=== PATIENT | male | born 1965 | race Caucasian/White ===

== ENCOUNTER → 2020-11-20 12:27 | Outpatient (CLI) | payer MEDICARE, SELFPAY ==
[2020-11-20 12:49] LABS: Absolute Lymphocyte Count 1.62 X10^3/uL (0.83-4.51); Absolute Neutrophil Count 3.2 X10^3/uL (2.0-7.7); Basophil# 0.03 X10^3/uL; Basophil% 0.6 % (0-1); Eosinophil# 0.06 X10^3/uL; Eosinophils% 1.1 % (0-5); Hematocrit 47.4 % (40-54); Hemoglobin 15.4 g/dL (13.0-16.5); Lymphocyte # 1.62 X10^3/ul (4.0); Mean Corp Hgb Conc 32.5 g/dL (32-36); Mean Corpuscular Hgb 30.7 pg (27.0-32.0); Mean Corpuscular Volume 94.6 fL (80-94); Monocyte# 0.47 X10^3/uL; Monocyte% 8.7 % (0-10); NRBC Flagged by Analyzer 0 % (0-5); Neutrophil # 3.21 X10^3/uL (2.7-7.7); Neutrophil % 59.4 % (47-70); Platelet Count 106 K/mm3 (150-450); RBC Distribution Width SD 48.5 fl (35.1-43.9); Red Blood Count 5.01 M/mm3 (4.6-6.2); White Blood Count 5.4 K/mm3 (4.4-11.0)
== END ==
DX: D69.59 Other secondary thrombocytopenia (principal)
CPT/HCPCS: 36415; 85025

== ENCOUNTER 2023-09-19 20:50 | Emergency (ER) | payer MEDICARE, SELFPAY ==
[2023-09-19 20:52] VITALS: BP 156/90; PULSE 78; RESP 18; TEMP 36.8; O2SAT 98; BMI 24.9
--- NOTE | 2023-09-19 21:00 | RAD_ITS ---
STUDY: X-RAY - RIGHT CLAVICLE REASON FOR EXAM: Male, 58 years old. PAIN TECHNIQUE: 2 view(s) of the clavicle. COMPARISON: None. FINDINGS: Severe deformity of the right clavicle secondary to old trauma. Normal acromioclavicular articulation. Normal visualized sternoclavicular articulation. There is a fracture involving the superolateral aspect of the right upper ribs. Otherwise normal Visualized pulmonary apex. RAD/Clavicle IMPRESSION: Severe deformity of the right clavicle presumably from old trauma with otherwise bony elements difficult to assess due to deformity superimposition artifact. An underlying lesion difficult to exclude. If indicated, the clavicle can be further assessed with CT or MRI in nonacute setting. Alternatively, evaluation with bone scan in nonacute setting can confirm benign processes. Electronically Signed: Germaine Landry MD at 21:41 EST ,
--- NOTE | 2023-09-19 21:34 | EX.ED.UPPERE ---
HPI History of Present Illness Chief Complaint: Upper Extremity Injury Detail of Chief Complaint: Right shoulder pain Informant: patient Narrative Narrative: Patient presents with right shoulder pain for the past 3 days. He has a history of stiff person syndrome. He reports having multiple falls and fractures in the past. 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 He reports right shoulder pain for the past 3 days, worse with any movement. He tried Epsom salt bath, Tylenol, wraps. He tried taking a friend's Percocet without improvement. There was no recent fall or injury. [facility] Medical History Fracture of left clavicle Fracture of right clavicle Injury of left clavicle Injury of right clavicle Pacemaker Stiff person syndrome Home Medications baclofen 20 mg tablet 20 mg PO QHS 12/12/22 [History Last Taken Unknown] diazepam 5 mg tablet 5 mg PO TID PRN 12/12/22 [History Last Taken Unknown] gabapentin 600 mg tablet 600 mg PO QHS 12/12/22 [History Last Taken Unknown] ibuprofen 200 mg tablet 200 mg PO Q6H PRN 12/12/22 [History Last Taken Unknown] meloxicam 15 mg tablet 15 mg PO DAILY 12/12/22 [History Last Taken Unknown] quetiapine 50 mg tablet 50 mg PO DAILY 12/12/22 [History Last Taken Unknown] sertraline 100 mg tablet 100 mg PO BID 12/12/22 [History Last Taken Unknown] oxycodone-acetaminophen 5 mg-325 mg tablet (Percocet) 1 tab PO Q8H PRN pain 3 days #10 tabs 09/19/23 [Rx Last Taken Unknown] Allergy/AdvReac Type Severity Reaction Status Date / Time carisoprodol [From Soma] Allergy Other Verified 09/19/23 20:55 diphenhydramine Allergy Hives Verified 09/19/23 20:55 [From Benadryl] Penicillins Allergy PT UNSURE Verified 09/19/23 20:55 OF REACTION topiramate [From Topamax] Allergy Other Verified 09/19/23 20:55 Surgical History History of left hip replacement Social History Smoking Status: Unknown if ever smoked ROS ROS ED Constitutional Constitutional ED: Denies chills or fever(s) Eyes Eyes: Denies discharge from eye(s) ENT ENT ED: Denies discharge from eye(s), rhinorrhea or sore throat Cardiovascular Cardiovascular: Denies chest pain Respiratory/Chest Respiratory/Chest: Denies cough or dyspnea Gastrointestinal Gastrointestinal: Denies abdominal pain, nausea or vomiting Musculoskeletal Musculoskeletal: Reports extremity pain; Denies back pain Integumentary Denies Abrasions or rash Neurologic Neurologic: Denies headache(s) Allergic/Immunologic Allergic/Immunologic ED: Denies lip swelling or urticaria EXAM Physical Exam Const Vital Signs: 09/19/23 20:52 Temperature 98.3 F Temperature Source Temporal Pulse Rate 78 Respiratory Rate 18 Blood Pressure 156/90 H Blood Pressure Mean 112 Pulse Ox 98 Oxygen Delivery Method Room Air Positive well nourished and well developed General Appearance ED: well developed Eyes EOMs intact bilaterally Chest Wall inspection of chest normal and palpation of chest normal Resp normal respiratory effort and clear to auscultation bilaterally Cardio regular rate and regular rhythm GI non-tender Palpation: soft Extremity Extremity Narrative: Mild diffuse muscular tenderness around the right shoulder. No evidence of dislocation. Strong distal pulses and good sensation on testing. Neuro oriented x3 and moves all extremities Psych mental status grossly normal Skin Lesions: no lesions Rashes: no rashes MDM MDM MDM Narrative Medical decision making narrative: Right clavicle x-rays were obtained per nursing protocol. Per my interpretation he has chronic changes from prior fractures, but no evidence of acute injury. Shoulder joint appears unremarkable. Radiology interpretation is reviewed. I did do an [facility] report. Patient has not had any narcotics prescribed to him. I will write him 10 tabs of Percocet and have him follow-up with his physician next week. He has seen [facility] in the past and is referred to them as well. Radiography Diagnostic Testing: Radiology Impression Clavicle X-Ray 09/19/23 21:00 IMPRESSION: Severe deformity of the right clavicle presumably from old trauma with otherwise bony elements difficult to assess due to deformity superimposition artifact. An underlying lesion difficult to exclude. If indicated, the clavicle can be further assessed with CT or MRI in nonacute setting. Alternatively, evaluation with bone scan in nonacute setting can confirm benign processes. Electronically Signed: Germaine Landry MD at 21:41 EST , Discharge Plan Triage Chief Complaint: Upper Extremity Injury ED Provider: Carola Blanco Dx/Rx/DC Orders Clinical Impression: Muscle strain of right shoulder region Instructions: ED Muscle Strain, Extremity Prescriptions: New oxycodone-acetaminophen [Percocet] 5-325 mg tablet 1 tab PO Q8H PRN (Reason: pain) 3 Days Qty: 10 0RF No Action gabapentin 600 mg tablet 600 mg PO QHS baclofen 20 mg tablet 20 mg PO QHS diazepam 5 mg tablet 5 mg PO TID PRN sertraline 100 mg tablet 100 mg PO BID meloxicam 15 mg tablet 15 mg PO DAILY quetiapine 50 mg tablet 50 mg PO DAILY ibuprofen 200 mg tablet 200 mg PO Q6H PRN Primary Care Provider: EDEL HENNESSY Referrals: Tejas Armstrong MD [Med Staff - Active Staff] - 1-2 Weeks Care Physician,No Primary [Non-Staff] - Disposition Disposition: Home, Self Care Discharge Date/Time: 09/19/23 22:18
--- OUTSIDE RECORDS SUMMARY | 2023-09-19 21:39 | XMS RPT_ITS | CCD ---
Author Name Unknown Address [id number] [place] [address] Organization [facility] Care Team Providers Care Instructional Technology Teacher Name Role Phone HARJEET, KHALED Unavailable Unavailable HARJEET, KHALED Unavailable Unavailable HARJEET, KHALED Unavailable Unavailable Desai, Yuhsin Unavailable Unavailable Desai, Yuhsin Unavailable Unavailable Brad, Ema Unavailable Unavailable Brad, Ema Unavailable Unavailable Desai, Yuhsin Unavailable Unavailable Family Physician Unavailable Unavailable Fiona vailable Family Physician Unavailable Unavailable Fiona vailable Brad, Ema Unavailable Unavailable Brad, Ema Unavailable Unavailable Brad, Ema Unavailable Unavailable Brad, Ema Unavailable Unavailable Brad, Ema Unavailable Unavailable Brad, Ema Unavailable Unavailable RICHARD, WASSIM Admitting Unavailable RICHARD, WASSIM Attending Unavailable BRAD, EMA Primary Care Unavailable BRAD, EMA Primary Care Unavailable TRISTAN CALIX Attending Unavailable ELICEO LANCEET Attending Unavailable MANJIT SALINASELLE Primary Care Unavailable RICHARD, WASSIM Admitting Unavailable RICHARD, WASSIM Attending Unavailable MANJIT SALINASELLE Primary Care Unavailable UNKNOWN, PROVIDER Attending Unavailable BRAD, EMA Primary Care Unavailable BRAD, EMA Primary Care Unavailable MIRIAM LANCE Attending Unavailable RICHARD, WASSIM Admitting Unavailable RICHARD, WASSIM Attending Unavailable BRAD, EMA Primary Care Unavailable RICHARD, WASSIM Admitting Unavailable RICHARD, WASSIM Attending Unavailable BRAD, EMA Primary Care Unavailable Brad, Ema Unavailable Unavailable Brad, Ema R Unavailable Unavailable Lara, Jin R Unavailable Unavailable Lara, Jin Bárbarabhzaid Unavailable Unavailab Jesu Fuentes Unavailable Unavailable Brad, Ema R Unavailable Unavailable Unavailable Ema Salinas DO Primary Care Provider EMA SALINAS Primary Care Unavailable LARA, JIN R Referring Unavailable Unavailable Unavailable Unavailable Unavailable Brad ManjitEma R Primary Care Provider Brad DOEma Unavailable Brad, Dr. Ema Mendoza Referring Bethanie Salinas, Dr. Ema Mendoza Primary Care Bethanie Salinas, Dr. Ema Mendoza Attending Bethanie Salinas, Dr. Ema Mendoza Referring Bethanie Salinas, Dr. Ema Mendoza Primary Care Bethanie Salinas, Dr. Ema Mendoza Attending Bethanie SALINAS, EMA MENDOZA Primary Care Unavailabl e Holiday, Dr. Baudilio Conte Attending Unavaila EMA Carney Primary Care Unavailabl e Holiday, Dr. Baudilio Conte Attending Unavaila EMA Carney Primary Care Unavailabl e Holiday, Dr. Baudilio Conte Attending Unavaila EMA Carney Primary Care Unavailable EMA SALINAS Attending Unavailable EMA SALINAS Primary Care Unavailable EMA SALINAS Attending Unavailable EMA SALINAS Primary Care Unavailable EMA SALINAS Attending Unavailable EMA SALINAS Primary Care Unavailable MARGARETH REDDY Referring Unavailable EMA SALINAS Primary Care Unavailable MARGARETH REDDY Referring Unavailable Allergies Allergy Classification Reported Allergen(s) Allergy Type Date of Onset Reaction(s) Facility Anti-Epileptic Agents (1 source) topiramate; Translations: [Topamax TABS] Drug Allergy XY-SEME-Segk [id number] Work Phone: Aspirin / Carisoprodol (1 source) Aspirin / Carisoprodol; Translations: [Soma Compound TABS] Drug Allergy LK-XHAH-Iamt [id number] Work Phone: diphenhydrAMINE (7 sources) diphenhydrAMINE; Translations: [Benadryl TABS] Drug Allergy [address] [place] [address] Penicillins (antibiotic) (7 sources) Penicillins; Translations: [Penicillins] Drug Allergy 5 [facility] (1 source) diphenhydrAMINE; Translations: [DIPHENHYDRAMINE HCL] Drug Allergy 2 [facility] Repository (20 sources) Penicillins; Translations: [PENICILLINS] Propensity to adverse reactions to drug (disorder) 2 Unknown [facility] Repository (20 sources) diphenhydrAMINE; Translations: [Benadryl TABS] Drug Allergy 3 Unknown HT-OGSE-Rdgi [id number] Work Phone: (20 sources) Aspirin / Carisoprodol; Translations: [Soma Compound TABS] Drug Allergy IF-OXHB-Pnvl [id number] Work Phone: (20 sources) topiramate; Translations: [Topamax TABS] Drug Allergy 3 Unknown VD-UITB-Fopp [id number] Work Phone: (3 sources) diphenhydrAMINE; Translations: [DIPHENHYDRAMINE ] [facility] (5 sources) Aspirin / Carisoprodol; Translations: [CARISOPRODOL- PIRIN] Drug Allergy 3 Unknown [facility] (2 sources) topiramate; Translations: [TOPIRAMATE] Drug Allergy 3 [facility] Repository Medications Current Medications Medication Drug Class(es) Dates Sig (Normalized) Sig (Original) celecoxib 200 mg oral capsule (4 sources) Nonsteroidal Anti-inflammatory Drug Start: 06-12-2023 End: 06-11-2024 take 1 capsule by mouth twice daily celecoxib (CeleBREX) 200 mg capsule Indications: DDD (degenerative disc disease), lumbar , Chronic pain syndrome Take 1 capsule (200 mg) by mouth 2 times a day. 60 capsule 06/12/2023 06/11/2024 Active Completed/Discontinued Medications Medication Drug Class(es) Dates Sig (Normalized) Sig (Original) acetaminophen 250 mg / aspirin 250 mg / caffeine 65 mg oral tablet (20 sources) Platelet Aggregation Inhibitor, Nonsteroidal Anti-inflammatory Drug, Central Nervous System Stimulant, Methylxanthine Start: 07-20-2020 End: 01-15-2023 take 1 tablet by mouth three times daily as needed for headache aspirin-acetamino phen-caffeine (Excedrin Extra Strength) 250-250-65 mg tablet Take 1 tablet by mouth 3 times a day as needed for headaches. 0 07/20/2020 01/15/2023 Discontinued (Therapy completed) Problems Active Problems Problem Classification Problem Date Documented Da te Episodic/Chronic Coagulation and hemorrhagic disorders (20 sources) Platelet count below reference range; Translations: [Thrombocytopenia , unspecified] Onset: 06-08-2015 02-16-2021 Chronic Past or Other Problems Problem Classification Problem Date Documented Da te Episodic/Chronic Abdominal pain (4 sources) Generalized abdominal pain; Translations: [Unspecified abdominal pain] Onset: 01-28-2018 Episodic Allergic reactions (1 source) Allergy status to penicillin Onset: 02-20-2018 Episodic Anal and rectal conditions (20 sources) Rectal pain; Translations: [Anal or rectal pain] Onset: 09-08-2020 Resolved: 01-15-2023 02-16-2021 Episodic Cardiac dysrhythmias (2 sources) Sick sinus syndrome; Translations: [Sick sinus syndrome] Onset: 06-01-2015 Resolved: 09-12-2020 09-12-2020 Chronic Cardiac dysrhythmias (2 sources) Bradycardia; Translations: [Bradycardia, unspecified] Onset: 04-24-2011 Resolved: 09-12-2020 09-12-2020 Episodic Crushing injury or internal injury (20 sources) Laceration of spleen; Translations: [Other specified aftercare] Onset: 09-08-2020 Resolved: 06-02-2019 09-08-2020 Episodic Deficiency and other anemia (20 sources) Anemia; Translations: [Anemia, unspecified] Onset: 09-08-2020 Resolved: 01-15-2023 02-16-2021 Episodic Deficiency and other anemia (20 sources) Nutritional anemia; Translations: [Other vitamin B12 deficiency anemia] Onset: 01-15-2023 01-15-2023 Episodic Gastrointestinal hemorrhage (20 sources) Hematochezia; Translations: [Blood in stool] Onset: 09-08-2020 Resolved: 01-15-2023 02-16-2021 Episodic Heart valve disorders (2 sources) Systolic murmur; Translations: [Cardiac murmur, unspecified] Onset: 06-07-2015 02-16-2021 Episodic Other aftercare (2 sources) Other terminal computer operator (current) drug therapy; Translations: [Other snf (current) drug therapy] Onset: 01-15-2023 Episodic Other connective tissue disease (20 sources) Pelvic floor dysfunction; Translations: [Pelvic muscle wasting] Onset: 02-16-2021 Resolved: 01-15-2023 02-16-2021 Episodic Other gastrointestinal disorders (1 source) Constipation, unspecified Onset: 10-18-2017 Episodic Other gastrointestinal disorders (2 sources) Hemoperitoneum; Translations: [Hemoperitoneum] Onset: 01-28-2018 Episodic Other gastrointestinal disorders (20 sources) Constipation; Translations: [Constipation, unspecified] Onset: 09-08-2020 02-16-2021 Episodic Other gastrointestinal disorders (20 sources) Urgent desire for stool; Translations: [Fecal urgency] Onset: 09-08-2020 Resolved: 01-15-2023 02-16-2021 Episodic Other gastrointestinal disorders (20 sources) H/O: colitis; Translations: [Personal history of other diseases of digestive system] Onset: 09-08-2020 Resolved: 06-02-2019 01-31-2021 Episodic Other nervous system disorders (1 source) Paresthesia of skin Onset: 10-18-2017 Episodic Other nervous system disorders (2 sources) Abnormal gait; Translations: [Unspecified abnormalities of gait and mobility] Onset: 10-30-2011 05-18-2015 Episodic Residual codes; unclassified (1 source) Tobacco use Onset: 02-20-2018 Episodic Residual codes; unclassified (20 sources) Insomnia; Translations: [Insomnia, unspecified] Onset: 09-08-2020 02-16-2021 Episodic Residual codes; unclassified (20 sources) H/O: Disorder; Translations: [Personal history of other specified diseases] Resolved: 03-07-2021 Episodic Residual codes; unclassified (2 sources) Procedure contraindicated; Translations: [Procedure and treatment not carried out because of other contraindication] Onset: 06-07-2015 02-16-2021 Episodic Skull and face fractures (8 sources) Unspecified fracture of facial bones, initial encounter for closed fracture; Translations: [Closed fracture of other facial bones] Onset: 04-24-2011 02-16-2021 Episodic Spondylosis; intervertebral disc disorders; other back problems (20 sources) Dorsalgia, unspecified; Translations: [Backache] Onset: 10-30-2011 Resolved: 01-15-2023 Episodic Unclassified (1 source) Unknown / UNK(Unknown) Onset: 01-28-2018 Unclassified (1 source) SPLEENIC RUPTURE Onset: 01-28-2018 Unclassified (6 sources) Patient encounter status; Translations: [Encounter for immunization] Unclassified (4 sources) H/O: blood transfusion; Translations: [History of blood transfusion] Unclassified (3 sources) Onset: 01-15-2023 Resolved: 05-13-2023 01-15-2023 Unclassified (1 source) Pain in other specified joint; Translations: [Pain in other specified joint] Onset: 06-12-2023 Viral infection (20 sources) Disease caused by 2019-nCoV; Translations: [Other specified viral infection] Onset: 01-15-2023 Resolved: 01-15-2023 01-15-2023 Episodic NEGATED: Highlighted row has not occurred!Residual codes; unclassified (20 sources) Disease Episodic Results Test Name Value Interpretation Reference Range Facil ity Vital Signs Date Time Vital Sign Value Performing Clinician Facility 06-12-2023 16:08-0400 Body height 180.3 cm Ema Salinas DO Work Phone: [facility] 06-12-2023 16:08-0400 Body mass index (BMI) [Ratio] 25.38 kg/m2 Ema Salinas DO Work Phone: [facility] 06-12-2023 16:08-0400 Body temperature 98.2 [degF] Ema Salinas DO Work Phone: [facility] 06-12-2023 16:08-0400 Body weight 82.56 kg Ema Salinas DO Work Phone: [facility] 06-12-2023 16:08-0400 Diastolic blood pressure 76 mm[Hg] Ema Salinas DO Work Phone: [facility] 06-12-2023 16:08-0400 Heart rate 80 /min Ema Salinas DO Work Phone: [facility] 06-12-2023 16:08-0400 Respiratory rate 16 /min Ema Salinas DO Work Phone: [facility] 06-12-2023 16:08-0400 SaO2% (BldA) [Mass fraction] 97 % Ema Salinas DO Work Phone: [facility] 06-12-2023 16:08-0400 Systolic blood pressure 130 mm[Hg] Ema Salinas DO Work Phone: [facility] 05-13-2023 13:11-0400 Body height 180.3 cm Ema Salinas DO Work Phone: [facility] 05-13-2023 13:11-0400 Body mass index (BMI) [Ratio] 24.83 kg/m2 Ema Salinas DO Work Phone: [facility] 05-13-2023 13:11-0400 Body temperature 98.2 [degF] Ema Salinas DO Work Phone: [facility] 05-13-2023 13:11-0400 Body weight 80.74 kg Ema Salinas DO Work Phone: [facility] 05-13-2023 13:11-0400 Diastolic blood pressure 76 mm[Hg] Ema Salinas DO Work Phone: [facility] 05-13-2023 13:11-0400 Heart rate 76 /min Ema Salinas DO Work Phone: [facility] 05-13-2023 13:11-0400 Respiratory rate 16 /min Ema Salinas DO Work Phone: [facility] 05-13-2023 13:11-0400 SaO2% (BldA) [Mass fraction] 95 % Ema Salinas DO Work Phone: [facility] 05-13-2023 13:11-0400 Systolic blood pressure 128 mm[Hg] Ema Brad DO Work Phone: [facility] 01-15-2023 14:51-0400 Body height 180.3 cm Ema Salinas DO Work Phone: [facility] 01-15-2023 14:51-0400 Body mass index (BMI) [Ratio] 27.06 kg/m2 Ema Brad DO Work Phone: [facility] 01-15-2023 14:51-0400 Body temperature 97.81 [degF] Ema Salinas DO Work Phone: [facility] 01-15-2023 14:51-0400 Body weight 88 kg Ema Salinsa DO Work Phone: [facility] 01-15-2023 14:51-0400 Diastolic blood pressure 76 mm[Hg] Ema Chaudhryey DO Work Phone: [facility] 01-15-2023 14:51-0400 Heart rate 76 /min Ema Salinas DO Work Phone: [facility] 01-15-2023 14:51-0400 Respiratory rate 16 /min Ema Salinas DO Work Phone: [facility] 01-15-2023 14:51-0400 SaO2% (BldA) [Mass fraction] 98 % Emamichael Salinas DO Work Phone: [facility] 01-15-2023 14:51-0400 Systolic blood pressure 122 mm[Hg] Ema Brad DO Work Phone: [facility] 09-17-2022 14:53-0500 Body mass index (BMI) [Ratio] 26.5 kg/m2 Ema Salinas Work Phone: FZ-NABI-Ddwc 2535A Work Phone: 09-17-2022 14:53-0500 Body surface area Derived from formula 2.06 m2 Ema Salinas Work Phone: GK-JZVN-Jhnr 2535A Work Phone: 09-17-2022 14:53-0500 Body temperature 97.2 [degF] mEa Salinas Work Phone: YD-TMJX-Qvou 2535A Work Phone: 09-17-2022 14:53-0500 Body weight 86.18 kg Ema Salinas Work Phone: GT-IDQJ-Dqzj 2535A Work Phone: 09-17-2022 14:53-0500 Diastolic blood pressure 76 mm[Hg] Ema Salinas Work Phone: VB-ODTE-Dkak 2535A Work Phone: 09-17-2022 14:53-0500 Heart rate 88 /min Ema Salinas Work Phone: FH-VZQY-Jvdj 2535A Work Phone: 09-17-2022 14:53-0500 Respiratory rate 16 /min Ema Salinas Work Phone: EF-KGZO-Bfka 2535A Work Phone: 09-17-2022 14:53-0500 SaO2% (BldA) [Mass fraction] 98 % Ema Salinas Work Phone: FD-ETXK-Haah 2535A Work Phone: 09-17-2022 14:53-0500 Systolic blood pressure 132 mm[Hg] Ema Salinas Work Phone: FD-LBCS-Olpj 2535A Work Phone: 05-02-2022 15:26-0400 Body mass index (BMI) [Ratio] 25.8 kg/m2 Ema Salinas Work Phone: ZV-IUYI-Knmh 2535A Work Phone: 05-02-2022 15:26-0400 Body surface area Derived from formula 2.04 m2 Ema Leif Chaudhryey Work Phone: MM-JXGL-Cbjv 2535A Work Phone: 05-02-2022 15:26-0400 Body temperature 98 [degF] Emamichael Chaudhryey Work Phone: RT-NAQM-Etyh 2535A Work Phone: 05-02-2022 15:26-0400 Body weight 83.92 kg Ema Chaudhryey Work Phone: CX-IQSE-Ulbq 2535A Work Phone: 05-02-2022 15:26-0400 Diastolic blood pressure 78 mm[Hg] Ema Salinas Work Phone: NQ-NISZ-Kgmk 2535A Work Phone: 05-02-2022 15:26-0400 Heart rate 68 /min Ema Chaudhryey Work Phone: AG-IBGQ-Ycgc 2535A Work Phone: 05-02-2022 15:26-0400 Respiratory rate 16 /min Ema Leif Chaudhryey Work Phone: OZ-KLGO-Keya 2535A Work Phone: 05-02-2022 15:26-0400 SaO2% (BldA) [Mass fraction] 98 % Ema Chaudhryey Work Phone: CJ-KLEA-Gfib 2535A Work Phone: 05-02-2022 15:26-0400 Systolic blood pressure 126 mm[Hg] Ema Salinas Work Phone: FO-PSQW-Rzyu 2535A Work Phone: 12-26-2021 13:05-0400 Body mass index (BMI) [Ratio] 25.38 kg/m2 Ema Salinas Work Phone: ZF-YQPZ-Ooss 2535A Work Phone: 12-26-2021 13:05-0400 Body surface area Derived from formula 2.03 m2 Ema Salinas Work Phone: LN-TDZA-Qtnb 2535A Work Phone: 12-26-2021 13:05-0400 Body temperature 98 [degF] Ema Salinas Work Phone: KS-EQOY-Pukr 2535A Work Phone: 12-26-2021 13:05-0400 Body weight 82.56 kg Ema Salinas Work Phone: JA-JFQQ-Tsmb 2535A Work Phone: 12-26-2021 13:05-0400 Diastolic blood pressure 72 mm[Hg] Ema Salinas Work Phone: OB-BJAX-Kxvd 2535A Work Phone: 12-26-2021 13:05-0400 Heart rate 72 /min Ema Salinas Work Phone: BE-FFMR-Fnkw 2535A Work Phone: 12-26-2021 13:05-0400 Respiratory rate 16 /min Ema Salinas Work Phone: RJ-ZBLJ-Bnpj 2535A Work Phone: 12-26-2021 13:05-0400 SaO2% (BldA) [Mass fraction] 98 % Ema Salinas Work Phone: KJ-OJBF-Pwim 2535A Work Phone: 12-26-2021 13:05-0400 Systolic blood pressure 116 mm[Hg] Ema Salinas Work Phone: WU-VFOI-Vgqq 2535A Work Phone: 11-19-2021 15:26-0400 Body mass index (BMI) [Ratio] 25.8 kg/m2 Ema Salinas Work Phone: BH-TXHL-Dvuf 2535A Work Phone: 11-19-2021 15:26-0400 Body surface area Derived from formula 2.04 m2 Ema Salinas Work Phone: PA-OLTP-Xgxx 2535A Work Phone: 11-19-2021 15:26-0400 Body temperature 97.9 [degF] Ema Salinas Work Phone: JA-WOMF-Clot 2535A Work Phone: 11-19-2021 15:26-0400 Body weight 83.92 kg Ema Salinas Work Phone: OD-VGAP-Ioee 2535A Work Phone: 11-19-2021 15:26-0400 Diastolic blood pressure 72 mm[Hg] Ema Salinas Work Phone: RH-HABC-Mdgs 2535A Work Phone: 11-19-2021 15:26-0400 Heart rate 76 /min Ema Salinas Work Phone: DU-WUTO-Ckkz 2535A Work Phone: 11-19-2021 15:26-0400 Respiratory rate 16 /min Ema Leif Brad Work Phone: SJ-ISIX-Tucx 2535A Work Phone: 11-19-2021 15:26-0400 SaO2% (BldA) [Mass fraction] 98 % Ema Chaudhryey Work Phone: JL-KWER-Xzvt 2535A Work Phone: 11-19-2021 15:26-0400 Systolic blood pressure 122 mm[Hg] Ema Chaudhryey Work Phone: UJ-HUVP-Fcoz 2535A Work Phone: 08-31-2021 12:40-0500 Body mass index (BMI) [Ratio] 24.41 kg/m2 Ema Salinas Work Phone: MZ-JLWV-Ynmb 2535A Work Phone: 08-31-2021 12:40-0500 Body surface area Derived from formula 1.99 m2 Ema Salinas Work Phone: PZ-BDWF-Cfse 2535A Work Phone: 08-31-2021 12:40-0500 Body temperature 97.9 [degF] Ema Salinas Work Phone: YA-LHOL-Nyqy 2535A Work Phone: 08-31-2021 12:40-0500 Body weight 79.38 kg Ema Salinas Work Phone: SK-NWDD-Xoka 2535A Work Phone: 08-31-2021 12:40-0500 Diastolic blood pressure 72 mm[Hg] Ema Salinas Work Phone: UE-TQGY-Ygvg 2535A Work Phone: 08-31-2021 12:40-0500 Heart rate 84 /min Ema Salinas Work Phone: EU-QFCL-Fbmd 2535A Work Phone: 08-31-2021 12:40-0500 Respiratory rate 16 /min Ema Salinas Work Phone: WZ-TVYM-Rhsz 2535A Work Phone: 08-31-2021 12:40-0500 SaO2% (BldA) [Mass fraction] 98 % Ema Salinas Work Phone: TZ-WIXU-Kmkd 2535A Work Phone: 01-21-2022 12:40-0500 Systolic blood pressure 118 mm[Hg] Ema Salinas Work Phone: IB-EVXQ-Msiw 2535A Work Phone: 04-19-2021 11:29-0400 Body height 180.34 cm Ema Salinas Work Phone: VE-SKNU-Vdab 2535A Work Phone: 04-19-2021 11:29-0400 Body mass index (BMI) [Ratio] 24.13 kg/m2 Ema Salinas Work Phone: AY-MJPJ-Mozs 2535A Work Phone: 04-19-2021 11:29-0400 Body surface area Derived from formula 1.98 m2 Ema Leif Brad Work Phone: NY-CFXZ-Jftx 2535A Work Phone: 04-19-2021 11:29-0400 Body temperature 97.6 [degF] Ema Salinas Work Phone: VM-EMZO-Qdrw 2535A Work Phone: 04-19-2021 11:29-0400 Body weight 78.47 kg Ema Salinas Work Phone: YO-FRPO-Xbbb 2535A Work Phone: 04-19-2021 11:29-0400 Diastolic blood pressure 68 mm[Hg] Ema Leif Brad Work Phone: LK-JBSR-Ckut 2535A Work Phone: 04-19-2021 11:29-0400 Heart rate 72 /min Ema Salinas Work Phone: DW-HNUW-Fazd 2535A Work Phone: 04-19-2021 11:29-0400 Respiratory rate 16 /min Ema Salinas Work Phone: VR-BTBC-Pnqu 2535A Work Phone: 04-19-2021 11:29-0400 SaO2% (BldA) [Mass fraction] 98 % Ema Salinas Work Phone: UL-ULMV-Qnjm 2535A Work Phone: 04-19-2021 11:29-0400 Systolic blood pressure 102 mm[Hg] Ema Salinas Work Phone: ML-PSDG-Azid 2535A Work Phone: 03-20-2021 15:48-0400 Body mass index (BMI) [Ratio] 23.48 kg/m2 Ema Salinas Work Phone: BS-OLBE-Slgo 2535A Work Phone: 03-20-2021 15:48-0400 Body surface area Derived from formula 2.05 m2 Ema Salinas Work Phone: DI-GTAE-Aeqb 2535A Work Phone: 03-20-2021 15:48-0400 Body temperature 98.2 [degF] Ema Salinas Work Phone: JP-ZCWL-Uobi 2535A Work Phone: 03-20-2021 15:48-0400 Body weight 80.74 kg Ema Salinas Work Phone: FB-KHOO-Ofsd 2535A Work Phone: 03-20-2021 15:48-0400 Diastolic blood pressure 64 mm[Hg] Ema Salinas Work Phone: FA-BSXS-Pizw 2535A Work Phone: 03-20-2021 15:48-0400 Heart rate 90 /min Ema Salinas Work Phone: HN-TQKC-Luvs 2535A Work Phone: 03-20-2021 15:48-0400 Respiratory rate 18 /min Ema Salinas Work Phone: MJ-OIGQ-Cbsl 2535A Work Phone: 03-20-2021 15:48-0400 SaO2% (BldA) [Mass fraction] 98 % Ema Salinas Work Phone: QV-LKEW-Kvll 2535A Work Phone: 03-20-2021 15:48-0400 Systolic blood pressure 100 mm[Hg] Ema Salinas Work Phone: KS-JJCN-Jvay 2535A Work Phone: 03-07-2021 15:50-0400 Body mass index (BMI) [Ratio] 23.88 kg/m2 Ema Salinas Work Phone: WL-EIIB-Uehu 2535A Work Phone: 03-07-2021 15:50-0400 Body surface area Derived from formula 2.06 m2 Ema Salinas Work Phone: UO-HIZE-Uemw 2535A Work Phone: 03-07-2021 15:50-0400 Body temperature 98.6 [degF] Ema Salinas Work Phone: OX-OSYT-Bgao 2535A Work Phone: 03-07-2021 15:50-0400 Body weight 82.1 kg Ema Leif Brad Work Phone: LJ-BRHG-Isrg 2535A Work Phone: 03-07-2021 15:50-0400 Diastolic blood pressure 72 mm[Hg] Ema Chaudhryey Work Phone: WO-IHNQ-Jsik 2535A Work Phone: 03-07-2021 15:50-0400 Heart rate 92 /min Ema Salinas Work Phone: UF-OLBD-Uprv 2535A Work Phone: 03-07-2021 15:50-0400 Respiratory rate 16 /min Ema Salinas Work Phone: EJ-QSIA-Xtvx 2535A Work Phone: 03-07-2021 15:50-0400 SaO2% (BldA) [Mass fraction] 98 % Ema Salinas Work Phone: XR-KWFR-Yuxn 2535A Work Phone: 03-07-2021 15:50-0400 Systolic blood pressure 134 mm[Hg] Ema Salinas Work Phone: UY-FDQA-Kpbn 2535A Work Phone: 01-17-2021 11:11-0400 Body mass index (BMI) [Ratio] 24.57 kg/m2 Ema Salinas Work Phone: BN-XPMJ-Geno 2535A Work Phone: 01-17-2021 11:11-0400 Body surface area Derived from formula 2.09 m2 Ema Salinas Work Phone: LN-MMYY-Zlsf 2535A Work Phone: 01-17-2021 11:11-0400 Body temperature 97.7 [degF] Ema Salinas Work Phone: HY-JTAY-Wcjb 2535A Work Phone: 01-17-2021 11:11-0400 Body weight 84.46 kg Ema Salinas Work Phone: LC-TNTZ-Toep 2535A Work Phone: 01-17-2021 11:11-0400 Diastolic blood pressure 78 mm[Hg] Ema Salnias Work Phone: MH-CHUF-Cpmk 2535A Work Phone: 01-17-2021 11:11-0400 Heart rate 88 /min Ema Salinas Work Phone: LL-IBDE-Azsh 2535A Work Phone: 01-17-2021 11:11-0400 Respiratory rate 16 /min Ema Salinas Work Phone: JX-UZHB-Yhxn 2535A Work Phone: 01-17-2021 11:11-0400 SaO2% (BldA) [Mass fraction] 98 % Ema Salinas Work Phone: BI-ZCSA-Gdka 2535A Work Phone: 01-17-2021 11:11-0400 Systolic blood pressure 120 mm[Hg] Ema Salinas Work Phone: BS-UVBV-Ouzq 2535A Work Phone: 10-19-2020 13:43-0500 BMI (Body Mass Index) 25.86 kg/m2 [facility] Work4 Work Phone: 10-19-2020 13:43-0500 Body Temperature 98.3 [degF] [facility] Work4 Work Phone: 10-19-2020 13:43-0500 Body weight 88.91 kg [facility] Work4 Work Phone: 10-19-2020 13:43-0500 BP Diastolic 88 mm[Hg] [facility] Work4 Work Phone: 10-19-2020 13:43-0500 BP Systolic 136 mm[Hg] [facility] Work4 Work Phone: 10-19-2020 13:43-0500 BSA (Body Surface Area) 2.13 m2 [facility] Work4 Work Phone: 10-19-2020 13:43-0500 Pulse (Heart Rate) 88 /min [facility] Work4 Work Phone: 10-19-2020 13:43-0500 Pulse Oximetry 98 % [facility] Work Phone: 10-19-2020 13:43-0500 Respiratory Rate 16 /min Ema [facility] Work Phone: 05-19-2020 12:26-0400 BMI (Body Mass Index) 25.6 kg/m2 Ema Salinas MP-WSPC-Avon 2535A Work Phone: 05-19-2020 12:26-0400 Body Temperature 98.2 [degF] Ema Salinas CX-JMAK-Zosk 25 35A Work Phone: 05-19-2020 12:26-0400 Body weight 88 kg Ema Salinas MP-WSPC-Avon 253 5A Work Phone: 05-19-2020 12:26-0400 BP Diastolic 80 mm[Hg] Ema Salinas MT-VOJD-Awkm 253 5A Work Phone: 05-19-2020 12:26-0400 BP Systolic 128 mm[Hg] Ema Salinas WH-KAUY-Zmkg 253 5A Work Phone: 05-19-2020 12:26-0400 BSA (Body Surface Area) 2.12 m2 Ema Salinas MP-WSPC-[place]on 2535A Work Phone: 05-19-2020 12:26-0400 Pulse (Heart Rate) 81 /min Ema Salinas MP-WSPC-[place]on 2535A Work Phone: 05-19-2020 12:26-0400 Pulse Oximetry 97 % Ema Salinas MP-WSPC-[place]on 253 5A Work Phone: 05-19-2020 12:26-0400 Respiratory Rate 18 /min Ema Salinas MP-WSPC-Avon 25 35A Work Phone: 12-10-2019 12:56-0400 BMI (Body Mass Index) 26.12 kg/m2 Ema Salinas MP-WSPC-Avon 2535A Work Phone: 12-10-2019 12:56-0400 Body Temperature 97 [degF] Ema Salinas MJ-ETEM-Hvvr 25 35A Work Phone: 12-10-2019 12:56-0400 Body weight 89.81 kg Ema Salinas JP-CMNG-Gqdg 253 5A Work Phone: 12-10-2019 12:56-0400 BP Diastolic 80 mm[Hg] Ema Salinas KH-DPZQ-Mrir 253 5A Work Phone: 12-10-2019 12:56-0400 BP Systolic 142 mm[Hg] Ema Salinas ZB-HPOE-Qdwt 253 5A Work Phone: 12-10-2019 12:56-0400 BSA (Body Surface Area) 2.14 m2 Ema Salinas [id number] Work Phone: 12-10-2019 12:56-0400 Pulse (Heart Rate) 90 /min Ema Salinas [id number] 2535A Work Phone: 12-10-2019 12:56-0400 Pulse Oximetry 98 % Ema Salinas [id number] 253 5A Work Phone: 12-10-2019 12:56-0400 Respiratory Rate 18 /min Ema Salinas [id number] 25 35A Work Phone: Encounters Encounter Date Encounter Type Care Provider Facility Start: 07-31-2023 ambulatory EMA SALINAS [facility] Start: 07-17-2023 End: 07-18-2023 ambulatory MARGARETH REDDY Not Available Start: 06-12-2023 End: 06-12-2023 ambulatory EMA SALINAS [facility] Start: 06-12-2023 End: 06-12-2023 Office outpatient visit 25 minutes Ema Salinas DO Work Phone: [facility] Procedures Date Procedure Procedure Detail Performing Clinician Start: 05-13-2023 CBC W Auto Different ial panel - Blood EMA SALINAS Start: 05-13-2023 Ferritin [Mass/volum e] in Serum or Plasma EMA BRAD Start: 05-13-2023 FOLATE EMA MENDOZA Start: 05-13-2023 IRON AND TIBC EMA BRAD Start: 05-13-2023 FLU VACCINE (IIV4) G REATER THAN OR EQUAL TO 3YO PRESERVATIVE FREE EMA SALINAS Start: 01-15-2023 OPIATE/OPIOID/BENZO PRESCRIPTION COMPLIANCE EMA SALINAS Start: 01-15-2023 OPIATE/OPIOID/BENZO EXTENDED PRESCRIPTION COMPLIANCE EMA SALINAS Start: 01-15-2023 OPIATE/OPIOID/BENZO PRESCRIPTION COMPLIANCE Ema Salinas DO Work Phone: Start: 01-15-2023 Lipid 1996 panel - S janelle or Plasma Ema Salinas DO Work Phone: Start: 04-04-2021 C-reactive protein Lisa Lara MD Work Phone: Start: 04-04-2021 Sedimentation rate r bc automated Jin Lara MD Work Phone: Start: 03-13-2021 Ct head/brain w/o co ntrast material Jin Lara MD Work Phone: Start: 03-13-2021 Ct lumbar spine w/o contrast material Jin Lara MD Work Phone: Start: 02-05-2021 End: 02-05-2021 Colonoscopy Ema Salinas Work Phone: Start: 10-27-2020 Anorectal Manometry Jasmeet Salinas Cardiac catheterization Manjit Salinas seo executive removal Manjit Salinas History of Hip Surgery Left Ema Salinas History of Pacemaker Placement Ema Salinas Insertion of pacemak er pulse generator Ema Salinas Plan of Treatment Date Care Activity Detail Author Start: 02-05-2031 Screening for malign ant neoplasm of colon [facility] Start: 01-16-2028 Lipid panel Lipid Panel [facility] Start: 05-14-2024 Medicare Annual Well ness Visit Medicare Annual Wellness Visit (AWV) [facility] Start: 01-16-2024 Creatinine measurement Creatinine Le jessica [facility] Start: 01-16-2024 Potassium measurement Potassium Anahi l [facility] Start: 11-12-2023 End: 11-12-2023 Patient encounter procedure 11/12/2023 1:30 PM EDT Office Visit [facility] [address] [place] [address] Ema Salinas, DO [address] [place] [address] [facility] Start: 07-21-2023 End: 07-21-2023 Patient encounter procedure 07/21/2023 2:30 PM EST Office Visit [facility] [address] [place] [address] Ema Salinas, DO [address] [place] [address] [facility] Start: 06-12-2023 End: 06-12-2024 CBC panel - Blood by Automated count CBC Lab Routine Pain in other joint Expected: 06/12/2023 (Approximate), Expires: 06/12/2024 [facility] Work Phone: Immunizations Immunization Date Immunization Notes Care Provider Fa [facility] 05-13-2023 influenza, injectabl e, quadrivalent, preservative free Ema Salinas DO Work Phone: [facility] Work Phone: 04-19-2021 influenza, injectabl e, quadrivalent, preservative free; Translations: [Fluarix Quadrivalent 0.5 ML Intramuscular Suspension Prefilled Syringe] Ema Salinas Work Phone: [id number] Work Phone: Payers Date Payer Category Payer Medicare ANTHEM MEDICARE ANTHEM MEDICARE ADVANTAGE [id number] 2021-Present [address] [place] [address] [id number] 2017 Medicaid MEDICAID MEDICAI D [id number] 2017-Present [address] [place] [address] [id number] 2017 Medicaid [id number] 2014 Unknown [id number] 1964 Unknown [id number] [id number]5 1964 Unknown [id number] 2.16.840.1.833605.3.579.2.355 1964 Unknown [id number] 2.16.840.1.963341.3.579.2.355 1964 Unknown [id number] 2.16.840.1.711129.3.579.2.355 1964 Unknown [id number] 2.16.840.1.662504.3.579.2.355 1964 Unknown [id number] 2.16.840.1.276254.3.579.2.355 1964 Unknown [id number] 2.16.840.1.088588.3.579.2.355 1964 Unknown [id number] 2.16.840.1.894386.3.579.2.355 1964 Unknown [id number] 2.16.840.1.005306.3.579.2.185 1964 Unknown [id number] 2.16.840.1.848586.3.579.2.356 1964 Unknown [id number] 2.16.840.1.825816.3.579.2.356 1964 Unknown [id number] 2.16.840.1.701104.3.579.2.1068 1964 Unknown [id number] 2.16.840.1.552099.3.579.2.1068 1964 Unknown [id number] 2.16.840.1.177290.3.579.2.1068 1964 Unknown [id number] 2.16.840.1.295318.3.579.2.1245 1964 Unknown [id number] 2.16.840.1.448411.3.579.2.124 1964 Unknown [id number] 2.16.840.1.738332.3.579.2.1244 1964 Unknown [id number] 2.16.840.1.493685.3.579.2.1244 1964 Unknown [id number] 2.16.840.1.797996.3.579.2.1259 1964 Unknown [id number] 2.16.840.1.087106.3.579.2.182 Unknown Social History Date Type Detail Facility Start: 01-15-2023 End: 05-13-2023 Current every day smoker Current every day smoker [id number] 2535A Work Phone: Functional Status Date Assessment Result Facility NEGATED: Highlighted row Functional performance Functional status health issues are not documented Disease [id number] 2535A Work Phone: Mental Status Date Assessment Result Facility NEGATED: Highlighted row Cognitive function [Interpretation] Cognitive status health issues are not documented Disease [id number] 2535A Work Phone: Clinical Notes 08-01-2020 to 06-12-2023 Ema Salinas, - 06/12/2023 4:00 PM Shine Salinas, DO - 05/13/2023 1:00 PM Shine Salinas, DO - 01/15/2023 2:30 PM EDT Note Date & Type Note Facility 06-12-2023 History of Present illness Narrative Subjective Lamont Ceja is a 57 y.o. male who presents for 6 month Follow-up. HPI Pt c/o increased pain to knees, shoulders, neck. Throbbing ache. Worse w/any activity. Tx: Tylenol, Excedrin, heat. Meloxicam, ineffective. Mood stable. Review of Systems Constitutional: Negative for fatigue and fever. Respiratory: Negative for cough and shortness of breath. Cardiovascular: Negative for chest pain and leg swelling. All other systems reviewed and are negative. Health Maintenance Due Topic Date Due Echocardiogram Never done Hepatitis B Vaccines (1 of 3 - 3-dose series) Never done HIV Screening Never done COVID-19 Vaccine (1) Never done MMR Vaccines (1 of 1 - Standard series) Never done Pneumococcal Vaccine: Pediatrics (0 to 5 Years) and At-Risk Patients (6 to 64 Years) (1 - PCV) Never done Hepatitis C Screening Never done DTaP/Tdap/Td Vaccines (1 - Tdap) Never done Zoster Vaccines (1 of 2) Never done Diabetes Screening 11/19/2022 Objective BP 130/76 Pulse 80 Temp 36.8 C (98.2 F) Resp 16 Ht 1.803 m (5' 11 ) Wt 82.6 kg (182 lb) SpO2 97% BMI 25.38 kg/m Physical Exam Vitals and nursing note reviewed. Constitutional: Appearance: Normal appearance. HENT: Head: Normocephalic. Eyes: Conjunctiva/sclera: Conjunctivae normal. Pupils: Pupils are equal, round, and reactive to light. Cardiovascular: Rate and Rhythm: Normal rate and regular rhythm. Pulses: Normal pulses. Heart sounds: Normal heart sounds. Pulmonary: Effort: Pulmonary effort is normal. Breath sounds: Normal breath sounds. Musculoskeletal: General: No swelling. Cervical back: Neck supple. Skin: General: Skin is warm and dry. Neurological: General: No focal deficit present. Mental Status: He is oriented to person, place, and time. Assessment/Plan Problem List Items Addressed This Visit Chronic pain syndrome Relevant Medications celecoxib (CeleBREX) 200 mg capsule DDD (degenerative disc disease), lumbar Relevant Medications celecoxib (CeleBREX) 200 mg capsule Tenesmus Relevant Orders Referral to Colorectal Surgery Other Visit Diagnoses Pain in other joint - Primary Relevant Orders Sedimentation Rate Comprehensive Metabolic Panel CBC Call on mon/tues Consider steroid if not improving Stop meloxicam Educated on taking meds properly Reviewed gi work up Anal manometry Will have him take report to neuro in jul to r/o neuro issue documented in this encounter [facility] Work Phone: 05-13-2023 History of Present illness Narrative Subjective Reason for Visit: Lamont Ceja is an 57 y.o. male here for a Medicare Wellness visit. Past Medical, Surgical, and Family History reviewed and updated in chart. Reviewed all medications by prescribing practitioner or clinical pharmacist (such as prescriptions, OTCs, herbal therapies and supplements) and documented in the medical record. HPI Influenza 23 Covid declines PCV13 PPSV23 Shingrix declines Tdap Colonoscopy 2020 Adv Dir no Psa 01/31 Bmi 24 Eye exam due Fall risk 23 Depression screen Adv dir Patient Care Team: Ema Salinas DO as PCP - General Ema Salinas DO as PCP - [employer] Medicare Advantage PCP Review of Systems Constitutional: Negative for fatigue and fever. Respiratory: Negative for cough and shortness of breath. Cardiovascular: Negative for chest pain and leg swelling. All other systems reviewed and are negative. Objective Vitals: BP 128/76 Pulse 76 Temp 36.8 C (98.2 F) Resp 16 Ht 1.803 m (5' 11 ) Wt 80.7 kg (178 lb) SpO2 95% BMI 24.83 kg/m Physical Exam Vitals and nursing note reviewed. Constitutional: Appearance: Normal appearance. HENT: Head: Normocephalic. Eyes: Conjunctiva/sclera: Conjunctivae normal. Pupils: Pupils are equal, round, and reactive to light. Cardiovascular: Rate and Rhythm: Normal rate and regular rhythm. Pulses: Normal pulses. Heart sounds: Normal heart sounds. Pulmonary: Effort: Pulmonary effort is normal. Breath sounds: Normal breath sounds. Musculoskeletal: General: No swelling. Cervical back: Neck supple. Skin: General: Skin is warm and dry. Neurological: General: No focal deficit present. Mental Status: He is oriented to person, place, and time. Assessment/Plan Problem List Items Addressed This Visit B12 deficiency anemia Chronic pain syndrome Compulsive behavior disorder (CMS/HCC) DDD (degenerative disc disease), lumbar Hypertension Major depression with psychotic features (CMS/HCC) Migraine Neuropathy Restless leg Stiffman syndrome Thrombocytopenia (CMS/HCC) Other Visit Diagnoses Healthcare maintenance - Primary Encounter for immunization Relevant Orders Flu vaccine (IIV4) age 6 months and greater, preservative free (Completed) Iron deficiency anemia, unspecified iron deficiency anemia type Major depressive disorder, single episode, severe with psychotic features (CMS/HCC) Relevant Medications sertraline (Zoloft) 100 mg tablet Cont meds Update preventive Recheck labs since january Reviewed labs from January I have personally reviewed patients OARRS report. This report is scanned into the emr. I have considered the risks of abuse, dependence, addiction and diversion. Stable based on symptoms and exam. Continue established treatment plan and follow up at least yearly.' documented in this encounter [facility] Work Phone: 01-15-2023 History of Present illness Narrative Subjective Lamont Ceja is a 57 y.o. male who presents for 4 month Hypertension and Migraine follow up. HPI Pt had visit w/Dr. Lara yesterday. 6 years in remission. Wanting to wean off meds. Per Dr. Laar, Increased Diazepam to TID. Weaning off of Gabapentin. After stopping, wait x2 weeks then wean off Baclofen. Referred to Pain Management for injections for back. Rhinitis well controlled w/OTC nasal powder inhalation and Atrovent. Did not bead picker Flonase as recommended d/t cost. Headaches well controlled w/Nurtec. Review of Systems Constitutional: Negative for fatigue and fever. Respiratory: Negative for cough and shortness of breath. Cardiovascular: Negative for chest pain and leg swelling. All other systems reviewed and are negative. Health Maintenance Due Topic Date Due Echocardiogram Never done Yearly Adult Physical Never done Hepatitis B Vaccines (1 of 3 - 3-dose series) Never done HIV Screening Never done COVID-19 Vaccine (1) Never done MMR Vaccines (1 of 1 - Standard series) Never done Pneumococcal Vaccine: Pediatrics (0 to 5 Years) and At-Risk Patients (6 to 64 Years) (1 - PCV) Never done Hepatitis C Screening Never done DTaP/Tdap/Td Vaccines (1 - Tdap) Never done Zoster Vaccines (1 of 2) Never done Diabetes Screening 11/19/2022 Objective BP 122/76 Pulse 76 Temp 36.6 C (97.8 F) Resp 16 Ht 1.803 m (5' 11 ) Wt 88 kg (194 lb) SpO2 98% BMI 27.06 kg/m Physical Exam Vitals and nursing note reviewed. Constitutional: Appearance: Normal appearance. HENT: Head: Normocephalic. Eyes: Conjunctiva/sclera: Conjunctivae normal. Pupils: Pupils are equal, round, and reactive to light. Cardiovascular: Rate and Rhythm: Normal rate and regular rhythm. Pulses: Normal pulses. Heart sounds: Normal heart sounds. Pulmonary: Effort: Pulmonary effort is normal. Breath sounds: Normal breath sounds. Musculoskeletal: General: No swelling. Cervical back: Neck supple. Skin: General: Skin is warm and dry. Neurological: General: No focal deficit present. Mental Status: He is oriented to person, place, and time. Assessment/Plan Problem List Items Addressed This Visit Bipolar and related disorder (CMS/HCC) Compulsive behavior disorder (CMS/HCC) Major depression with psychotic features (CMS/HCC) Migraine Neuropathy Restless leg Stiffman syndrome Thrombocytopenia (CMS/HCC) Acute diastolic congestive heart failure (CMS/HCC) - Primary Relevant Medications tadalafil 20 mg tablet Closed fracture of facial bone, unspecified facial bone, sequela (CMS/HCC) Other Visit Diagnoses Vasomotor rhinitis Medication management Relevant Orders Opiate/Opioid/Benzo Extended Prescription Compliance I have personally reviewed patients OARRS report. This report is scanned into the emr. I have considered the risks of abuse, dependence, addiction and diversion. Cont meds Discussed weaning gabapentin and baclofen Pt not seeing psych , do not recommend pt weaning from sertraline or seroquel Fu in 4-6 months documented in this encounter [facility] Work Phone: 09-17-2022 History of Present illness Narrative The patient is being seen for a routine clinic follow-up of migraine headaches. Symptoms: phonophobia, but no nauseaThe patient presents with complaints of headache (most recent migraine 1 day ago).LAMONT CEJA presents with complaints of nasal symptoms.Associated symptoms include no cough.The patient presents with complaints of clear nasal discharge starting 5 weeks ago.pt denies any depression [id number] Work Phone: 12-09-2021 History of Present illness Narrative 4 month fuSaw Psych Tino Dines.Had virtual appt's December, January,.Had in person visit 03/2022.Referred to Psychiatrist, Dr. Gotti.Missed virtual appt 04/12/2022. Rescheduled 04/25/2022. Could not connect. Psychiatrist cancelled further appt;s d/t missing first appt.Contacted , referred to Psychiatrist at [facility] . Unable to schedule d/t [place] county.Requesting referral to Psychiatrist.C/o migraines.Occur every 2-3 days.Uses Sumatriptan, per Dr. Lara. Ineffective. [employer] [id number] Work Phone: 12-09-2021 History of Present illness Narrative 4 month fuSaw Psych Tino Dines.Had virtual appt's December,.Had in person visit 03/2022.Referred to Psychiatrist, Dr. Gotti.Missed virtual appt 04/12/2022. Rescheduled 04/25/2022. Could not connect. Psychiatrist cancelled further appt;s d/t missing first appt.Contacted , referred to Psychiatrist at [facility] . Unable to schedule d/t being out of [facility].Requesting referral to Psychiatrist.C/o migraines.Occur every 2-3 days.Uses Sumatriptan, per Dr. Lara. Ineffective. [employer] [id number] Work Phone: 03-07-2021 History of Present illness Narrative The history is obtained from the patient. The patient is being seen for a medication check for routine follow-up.Medication(s): Seroquel 25 mg.Sertraline 100 mg. There were no side effects noted. The patient was compliant. Symptomatic changes since the last visit included Pt voices much improvement in hallucinations/psychosis since med changes 03/07/2021. Since the last visit, there has been no home monitoring. [employer] [id number] Work Phone: 03-07-2021 History of Present illness Narrative The history is obtained from the patient. The patient is being seen for a medication check for routine follow-up.Medication(s): Seroquel 25 mg.Sertraline 100 mg. There were no side effects noted. The patient was compliant. Symptomatic changes since the last visit included Pt voices much improvement in hallucinations/psychosis since med changes 03/07/2021. Since the last visit, there has been no home monitoring. [id number] Work Phone: 12-21-2020 History of Present illness Narrative The patient is being seen for worsening symptoms of headaches.The patient presents with complaints of severe headache (Reports daily Mirgraines. Seen by Dr. Lara. Started Aimovig 12/21/2020)( Qmonth). The patient is currently experiencing symptoms. Pain scores include a current pain level of 5/10.A CBC was/were drawn. Results showed Platelets: 87. Referred to Dr. Castellanos. No new symptoms were noted. No behavioral or lifestyle changes were made. [id number] [id number] Work Phone: 08-01-2020 Note Post Operative Note: Post-Procedure Diagnosis: Thoracic spondylosis Procedure: Medial nerve branch block bilateral at T 11 and T12 Surgeon: Carol Gallo MD Resident/Fellow/Other Sign Writer Letterer Or Painter: None Anesthesia: 1% lidocaine Estimated Blood Loss (mL): None Specimen: no Findings: None Operative Report Dictated: Dictation: not applicable - note contains Operative Report Operative Report: Clinical Note The patient is here today to receive diagnostic medial nerve branch block to assist with pain. Procedure Note The patient was taken to the procedure room, was placed into a prone position. The area was prepped and draped sterilely in the normal fashion. The patient was throughout the procedure monitored by the nursing staff. The skin and subcutaneous tissue was anesthetized with 1% lidocaine. Then 22-gauge spinal needles were introduced into the approximation of the medial nerve branches at the above mentioned level, confirmed in AP and oblique view with negative aspiration of heme and CSF. The patient received 0.5 mL of 2% lidocaine per site. The patient tolerated the procedure well, was taken to the recovery room, allowed to recover for sufficient amount of time and then was discharged home in stable condition. The patient was advised to followup with the [facility] to reassess the improvement and determine the need for the radiofrequency ablation. Thank you for allowing me to participate in the care of this patient. Electronic Signatures: Carol Gallo) (Signed 01-Aug-2020 12:00) Authored: Post Operative Note, Note Completion Last Updated: 01-Aug-2020 12:00 by Carol Gallo) [facility] documented in this encounter [facility] Phone: evaluation note* Diagnosis Acute intractable tension-type headache documented in this encounter [facility] Phone: evaluation note* Diagnosis Acute diastolic congestive heart failure (CMS/HCC)- Primary Closed fracture of facial bone, unspecified facial bone, sequela (CMS/HCC) Major depression with psychotic features (CMS/HCC) Thrombocytopenia (CMS/HCC) Unspecified thrombocytopenia Bipolar and related disorder (CMS/HCC) Compulsive 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 Chronic migraine without aura without status migrainosus, not intractable Stiffman syndrome Stiff-man syndrome Restless leg Restless legs syndrome (RLS) Neuropathy Mononeuritis of unspecified site Vasomotor rhinitis Allergic rhinitis, cause unspecified Medication management documented in this encounter [facility] Work Phone: Evaluation note* Diagnosis Healthcare maintenance- Primary Encounter for immunization Stiffman syndrome Stiff-man syndrome Restless leg Restless legs syndrome (RLS) Chronic pain syndrome DDD (degenerative disc disease), lumbar Degeneration of lumbar or lumbosacral intervertebral disc Neuropathy Mononeuritis of unspecified site Compulsive 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) Other vitamin B12 deficiency anemia Thrombocytopenia (CMS/HCC) Unspecified thrombocytopenia Primary hypertension Unspecified essential hypertension Iron deficiency anemia, unspecified iron deficiency anemia type Chronic migraine without aura without status migrainosus, not intractable Major depressive disorder, single episode, severe with psychotic features (CMS/HCC) documented in this encounter [facility] Work Phone: Evaluation note* Diagnosis Pain in other joint- Primary DDD (degenerative disc disease), lumbar Degeneration of lumbar or lumbosacral intervertebral disc Chronic pain syndrome Tenesmus Other symptoms involving digestive system documented in this encounter [facility] Work Phone: History of Present illness Narrative* The patient is currently experiencing symptoms. depressed mood hopelessness feelings of guilt anxiety appetite change Symptoms: sleep disturbance and irritability. * Associated symptoms: racing thoughts, periods of excess energy, visual hallucinations and Excessing. * cant stop talking * cant sleep * lives with sister and brother in law * hasn t eaten in 3 days * not taking meds * was doing fine doesn t want to be a guinnea pig * saw dr lara on february 08 * got sick in 04/2012 [employer] [id number] Work Phone: History of Present illness Narrative* The patient is being seen for the subsequent annual wellness visit. * Past Medical, Surgical and Family History: reviewed and updated in chart. * Interval History: Patient has not been hospitalized previously. * Medications and Supplements: Medications and supplements, including calcium and vitamins reviewed and updated in chart. * No, the patient is not using opioids. * Patient Self Assessment of Health Status: good. * Tobacco use: User * Alcohol use: User * Illicit drug use: Non-User * Current diet: unhealthy diet, does consume adequate fluids and does consume caffeine. * Exercise Frequency: regularly. * Depression/Suicide Screening: Patient has a current diagnosis of depression . * During the past 2 weeks, the patient has not felt down, depressed or hopeless. * During the past 2 weeks, the patient felt little interest or pleasure in doing things. * Hearing Impairment: none. * Cognitive Impairment: No cognitive impairment observed. * Bathing: performs independently. * Dressing: performs independently. * Walking: performs independently. * Toileting: performs independently. * Feeding: performs independently. * Personal Hygiene: performs independently. * Bowels: continent. * Bladder: continent. * Managing Finances: performs independently. * Shopping: performs independently. * Managing Medications: performs independently. * Housework / Basic Home Maintenance: performs independently. * Handling Transportation: performs independently. * Preparing Meals: performs independently. * Using the Telephone/ Communication Devices: performs independently. * Falls Risk Screening:. LAMONT has not fallen in the last 6 months. * Home safety risk factors: none. * Advance directives:. Patient has no living will. Patient has no healthcare POA. [employer] [id number] Work Phone: History of Present illness Narrative* The patient states his depression has worsened since the last visit. They have had recurrent episodes of major depression. Comorbid Illnesses: anxiety. He has had no significant interval events. * Interval Symptoms: worsened depression and worsened anxiety. Reports worsening counting and repeating * Medications: the patient is adherent with his medication regimen. * Additional History: Pt reports he was Covid positive 07/11/2021. Reported continued cough x1 week. Fever x1 week later. Took Tylenol and Mucinex. Sx's have improved. [id number] Work Phone: History of Present illness Narrative* The patient states his depression has worsened since the last visit. They have had recurrent episodes of major depression. Comorbid Illnesses: anxiety. He has had no significant interval events. * Interval Symptoms: worsened depression and worsened anxiety. Reports worsening counting and repeating * Medications: the patient is adherent with his medication regimen. * Additional History: Pt reports he was Covid positive 07/11/2021. Reported continued cough x1 week. Fever x1 week later. Took Tylenol and Mucinex. Sx's have improved. [employer] [id number] Work Phone: History of Present illness Narrative* Mr. LAMONT CEJA denies any suicidal or homicidal ideation or plans. * The patient is seen with his, sister Trish, and the patient has trouble with sleeping, excessive talking, thoughts do not shut down. [employer] [facility] Work Phone: History of Present illness Narrative* Mr. LAMONT CEJA denies any suicidal or homicidal ideation or plans. * The patient is seen with his, sister Trish, and the patient has trouble with sleeping, excessive talking, thoughts do not shut down. * We processed his compulsive issues of counting with the patient and his sister. We discussed the need for further cognitive behavioral therapy for his compulsions in therapy today. The patient was able to share his feelings and concerns in therapy today. [employer] [address] [facility] Work Phone: History of Present illness Narrative* LAMONT CEJA presents with complaints of bilateral knee pain, described as sharp, non-radiating (Pt reports pain began in feet, burning/numbness type pain x2 months ago. Stated pain continues and bilat knee pain) * Associated symptoms include stiffness and instability. * The patient is being seen for an initial evaluation of a hand problem affecting both hands. * Current Symptoms include hand client professional weakness and stiffness. * The patient is being seen for an initial evaluation of back pain. Symptoms: back stiffness * The patient presents with complaints of bilateral lower back pain (C/o worsening chronic back pain). The patient is currently experiencing symptoms. Pain scores include a current pain level of 10/10. [employer] [id number] Work Phone: History of Present illness Narrative* LAMONT CEJA presents with complaints of bilateral knee pain, described as sharp, non-radiating (Pt reports pain began in feet, burning/numbness type pain x2 months ago. Stated pain continues and bilat knee pain) * Associated symptoms include stiffness and instability. * The patient is being seen for an initial evaluation of a hand problem affecting both hands. * Current Symptoms include hand client professional weakness and stiffness. * The patient is being seen for an initial evaluation of back pain. Symptoms: back stiffness * The patient presents with complaints of bilateral lower back pain (C/o worsening chronic back pain). The patient is currently experiencing symptoms. Pain scores include a current pain level of 10/10. [employer] [id number] Work Phone: History of Present illness Narrative* The patient is being seen for the subsequent annual wellness visit. * Past Medical, Surgical and Family History: reviewed and updated in chart. * Medications and Supplements: Review of all medications by a prescribing practitioner or clinical pharmacist (such as prescriptions, OTCs, herbal therapies and supplements) documented in the medical record. * No, the patient is not using opioids. * Patient Self Assessment of Health Status: good. * Tobacco use: User * Alcohol use: User * Illicit drug use: Non-User * Current diet: well balanced diet, does consume adequate fluids and does consume caffeine. * Exercise Frequency: regularly. * Depression/Suicide Screening: Patient has a current diagnosis of depression. * Hearing Impairment: none. * Bathing: performs independently. * Dressing: performs independently. * Walking: performs independently. * Toileting: performs independently. * Feeding: performs independently. * Personal Hygiene: performs independently. * Bowels: continent. * Bladder: continent. * Managing Finances: performs independently. * Shopping: performs independently. * Managing Medications: performs independently. * Housework / Basic Home Maintenance: performs independently. * Handling Transportation: performs independently. * Preparing Meals: performs independently. * Using the Telephone/ Communication Devices: performs independently. * Falls Risk Screening:. LAMONT has not fallen in the last 6 months. * Home safety risk factors: none. * Advance directives:. Advanced Care Planning discussed and documented advance care plan or surrogatedecision maker documented in the medical record. Patient has no living will. Patient has no healthcare POA. * The patient is being seen for a routine clinic follow-up of peripheral neuropathy. Symptoms: numbness and tingling * The patient presents with complaints of lower extremity pain (C/o pain to knee and continued pain to feet). The patient is currently experiencing symptoms. (Stated pain improved to feet w/Prednisone.Returned after finished course of tx) [facility] [id number] Work Phone: History of Present illness Narrative* Mr. LAMONT CEJA denies any suicidal or homicidal ideation or plans. * The patient is seen with his, sister Trish, and the patient has trouble with sleeping, excessive talking, thoughts do not shut down. * We processed his compulsive issues of counting with the patient and his sister. We discussed the need for further cognitive behavioral therapy for his compulsions in therapy today. The patient was able to share his feelings and concerns in therapy today. [address] Work Phone: reason for referral (narrative)* Consultation (Routine) - Authorized Specialty Diagnoses / Procedures Referred By Yessica barnard Referred To Contact Colon and Rectal Surgery / General Surgery Diagnoses Ema Fregoso DO [address] [place] [address] [place] [address] [facility] [address], [address] [address] Referral ID Status Reason Start Date Expiration Date Visits Requested Visits Authorized [id number] Authorized Specialty Services Required 06/12/2023 06/11/2024 1 1 [facility] Work Phone: Summary Purpose Family History No Family History Records Found Mother Name Dates Details Family history of chronic ob structive pulmonary disease(V17.6, Z82.5) Status:Active Father Name Dates Details Family history of coronary a rtery disease(V17.3, Z82.49) Status:Active Mother Name Dates Details Family history of chronic ob structive pulmonary disease(V17.6, Z82.5) Status:Active Father Name Dates Details Family history of coronary a rtery disease(V17.3, Z82.49) Status:Active Mother Name Dates Details Family history of chronic ob structive pulmonary disease(V17.6, Z82.5) Status:Active Father Name Dates Details Family history of coronary a rtery disease(V17.3, Z82.49) Status:Active Mother Name Dates Details Family history of chronic ob structive pulmonary disease(V17.6, Z82.5) Status:Active Father Name Dates Details Family history of coronary a rtery disease(V17.3, Z82.49) Status:Active Unknown Family Member Name Dates Details Family history of coronary a rtery disease: Father(V17.3, Z82.49) Status:Active Family history of chronic ob structive pulmonary disease: Mother(V17.6, Z82.5) Status:Active Unknown Family Member Name Dates Details Family history of coronary a rtery disease: Father(V17.3, Z82.49) Status:Active Family history of chronic ob structive pulmonary disease: Mother(V17.6, Z82.5) Status:Active Unknown Family Member Name Dates Details Family history of coronary a rtery disease: Father(V17.3, Z82.49) Status:Active Family history of chronic ob structive pulmonary disease: Mother(V17.6, Z82.5) Status:Active Unknown Family Member Name Dates Details Family history of coronary a rtery disease: Father(V17.3, Z82.49) Status:Active Family history of chronic ob structive pulmonary disease: Mother(V17.6, Z82.5) Status:Active Unknown Family Member Name Dates Details Family history of coronary a rtery disease: Father(V17.3, Z82.49) Status:Active Family history of chronic ob structive pulmonary disease: Mother(V17.6, Z82.5) Status:Active Unknown Family Member Name Dates Details Family history of coronary a rtery disease: Father(V17.3, Z82.49) Status:Active Family history of chronic ob structive pulmonary disease: Mother(V17.6, Z82.5) Status:Active Unknown Family Member Name Dates Details Family history of coronary a rtery disease: Father(V17.3, Z82.49) Status:Active Family history of chronic ob structive pulmonary disease: Mother(V17.6, Z82.5) Status:Active Unknown Family Member Name Dates Details Family history of coronary a rtery disease: Father(V17.3, Z82.49) Status:Active Family history of chronic ob structive pulmonary disease: Mother(V17.6, Z82.5) Status:Active Unknown Family Member Name Dates Details Family history of coronary a rtery disease: Father(V17.3, Z82.49) Status:Active Family history of chronic ob structive pulmonary disease: Mother(V17.6, Z82.5) Status:Active Unknown Family Member Name Dates Details Family history of coronary a rtery disease: Father(V17.3, Z82.49) Status:Active Family history of chronic ob structive pulmonary disease: Mother(V17.6, Z82.5) Status:Active Unknown Family Member Name Dates Details Family history of coronary a rtery disease: Father(V17.3, Z82.49) Status:Active Family history of chronic ob structive pulmonary disease: Mother(V17.6, Z82.5) Status:Active Unknown Family Member Name Dates Details Family history of coronary a rtery disease: Father(V17.3, Z82.49) Status:Active Family history of chronic ob structive pulmonary disease: Mother(V17.6, Z82.5) Status:Active Unknown Family Member Name Dates Details Family history of coronary a rtery disease: Father(V17.3, Z82.49) Status:Active Family history of chronic ob structive pulmonary disease: Mother(V17.6, Z82.5) Status:Active Unknown Family Member Name Dates Details Family history of coronary a rtery disease: Father(V17.3, Z82.49) Status:Active Family history of chronic ob structive pulmonary disease: Mother(V17.6, Z82.5) Status:Active Unknown Family Member Name Dates Details Family history of coronary a rtery disease: Father(V17.3, Z82.49) Status:Active Family history of chronic ob structive pulmonary disease: Mother(V17.6, Z82.5) Status:Active Family history of senile dem entia: Mother, Maternal Grandmother, Maternal Grandfather(V17.2, Z82.0) Status:Active Alcohol abuse: Father(305.00 , F10.10) Status:Active Unknown Family Member Name Dates Details Family history of senile dem entia: Mother, Maternal Grandmother, Maternal Grandfather(V17.2, Z82.0) Status:Active Alcohol abuse: Father(305.00 , F10.10) Status:Active Family history of chronic ob structive pulmonary disease: Mother(V17.6, Z82.5) Status:Active Family history of coronary a rtery disease: Father(V17.3, Z82.49) Status:Active Unknown Family Member Name Dates Details Alcohol abuse: Father(305.00 , F10.10) Status:Active Family history of senile dem entia: Mother, Maternal Grandmother, Maternal Grandfather(V17.2, Z82.0) Status:Active Family history of chronic ob structive pulmonary disease: Mother(V17.6, Z82.5) Status:Active Family history of coronary a rtery disease: Father(V17.3, Z82.49) Status:Active Unknown Family Member Name Dates Details Family history of coronary a rtery disease: Father(V17.3, Z82.49) Status:Active Family history of chronic ob structive pulmonary disease: Mother(V17.6, Z82.5) Status:Active Family history of senile dem entia: Mother, Maternal Grandmother, Maternal Grandfather(V17.2, Z82.0) Status:Active Alcohol abuse: Father(305.00 , F10.10) Status:Active Unknown Family Member Name Dates Details Family history of senile dem entia: Mother, Maternal Grandmother, Maternal Grandfather(V17.2, Z82.0) Status:Active Alcohol abuse: Father(305.00 , F10.10) Status:Active Family history of chronic ob structive pulmonary disease: Mother(V17.6, Z82.5) Status:Active Family history of coronary a rtery disease: Father(V17.3, Z82.49) Status:Active Unknown Family Member Name Dates Details Family history of coronary a rtery disease: Father(V17.3, Z82.49) Status:Active Family history of chronic ob structive pulmonary disease: Mother(V17.6, Z82.5) Status:Active Family history of senile dem entia: Mother, Maternal Grandmother, Maternal Grandfather(V17.2, Z82.0) Status:Active Alcohol abuse: Father(305.00 , F10.10) Status:Active Unknown Family Member Name Dates Details Family history of coronary a rtery disease: Father(V17.3, Z82.49) Status:Active Family history of chronic ob structive pulmonary disease: Mother(V17.6, Z82.5) Status:Active Family history of senile dem entia: Mother, Maternal Grandmother, Maternal Grandfather(V17.2, Z82.0) Status:Active Alcohol abuse: Father(305.00 , F10.10) Status:Active Unknown Family Member Name Dates Details Alcohol abuse: Father(305.00 , F10.10) Status:Active Family history of senile dem entia: Mother, Maternal Grandmother, Maternal Grandfather(V17.2, Z82.0) Status:Active Family history of chronic ob structive pulmonary disease: Mother(V17.6, Z82.5) Status:Active Family history of coronary a rtery disease: Father(V17.3, Z82.49) Status:Active Unknown Family Member Name Dates Details Family history of coronary a rtery disease: Father(V17.3, Z82.49) Status:Active Family history of chronic ob structive pulmonary disease: Mother(V17.6, Z82.5) Status:Active Family history of senile dem entia: Mother, Maternal Grandmother, Maternal Grandfather(V17.2, Z82.0) Status:Active Alcohol abuse: Father(305.00 , F10.10) Status:Active Unknown Family Member Name Dates Details Family history of coronary a rtery disease: Father(V17.3, Z82.49) Status:Active Family history of chronic ob structive pulmonary disease: Mother(V17.6, Z82.5) Status:Active Family history of senile dem entia: Mother, Maternal Grandmother, Maternal Grandfather(V17.2, Z82.0) Status:Active Alcohol abuse: Father(305.00 , F10.10) Status:Active Unknown Family Member Name Dates Details Family history of coronary a rtery disease: Father(V17.3, Z82.49) Status:Active Family history of chronic ob structive pulmonary disease: Mother(V17.6, Z82.5) Status:Active Alcohol abuse: Father(305.00 , F10.10) Status:Active Family history of senile dem entia: Mother, Maternal Grandmother, Maternal Grandfather(V17.2, Z82.0) Status:Active Unknown Family Member Name Dates Details Alcohol abuse: Father(305.00 , F10.10) Status:Active Family history of senile dem entia: Mother, Maternal Grandmother, Maternal Grandfather(V17.2, Z82.0) Status:Active Family history of chronic ob structive pulmonary disease: Mother(V17.6, Z82.5) Status:Active Family history of coronary a rtery disease: Father(V17.3, Z82.49) Status:Active Unknown Family Member Name Dates Details Family history of coronary a rtery disease: Father(V17.3, Z82.49) Status:Active Family history of chronic ob structive pulmonary disease: Mother(V17.6, Z82.5) Status:Active Family history of senile dem entia: Mother, Maternal Grandmother, Maternal Grandfather(V17.2, Z82.0) Status:Active Alcohol abuse: Father(305.00 , F10.10) Status:Active Unknown Family Member Name Dates Details Family history of coronary a rtery disease: Father(V17.3, Z82.49) Status:Active Family history of chronic ob structive pulmonary disease: Mother(V17.6, Z82.5) Status:Active Family history of senile dem entia: Mother, Maternal Grandmother, Maternal Grandfather(V17.2, Z82.0) Status:Active Alcohol abuse: Father(305.00 , F10.10) Status:Active Unknown Family Member Name Dates Details Family history of coronary a rtery disease: Father(V17.3, Z82.49) Status:Active Family history of chronic ob structive pulmonary disease: Mother(V17.6, Z82.5) Status:Active Family history of senile dem entia: Mother, Maternal Grandmother, Maternal Grandfather(V17.2, Z82.0) Status:Active Alcohol abuse: Father(305.00 , F10.10) Status:Active Unknown Family Member Name Dates Details Family history of coronary a rtery disease: Father(V17.3, Z82.49) Status:Active Family history of chronic ob structive pulmonary disease: Mother(V17.6, Z82.5) Status:Active Alcohol abuse: Father(305.00 , F10.10) Status:Active Family history of senile dem entia: Mother, Maternal Grandmother, Maternal Grandfather(V17.2, Z81.8) Status:Active Unknown Family Member Name Dates Details Family history of coronary a rtery disease: Father(V17.3, Z82.49) Status:Active Family history of chronic ob structive pulmonary disease: Mother(V17.6, Z82.5) Status:Active Family history of senile dem entia: Mother, Maternal Grandmother, Maternal Grandfather(V17.2, Z81.8) Status:Active Alcohol abuse: Father(305.00 , F10.10) Status:Active Unknown Family Member Name Dates Details Family history of coronary a rtery disease: Father(V17.3, Z82.49) Status:Active Family history of chronic ob structive pulmonary disease: Mother(V17.6, Z82.5) Status:Active Family history of senile dem entia: Mother, Maternal Grandmother, Maternal Grandfather(V17.2, Z81.8) Status:Active Alcohol abuse: Father(305.00 , F10.10) Status:Active Unknown Family Member Name Dates Details Family history of coronary a rtery disease: Father(V17.3, Z82.49) Status:Active Family history of chronic ob structive pulmonary disease: Mother(V17.6, Z82.5) Status:Active Family history of senile dem entia: Mother, Maternal Grandmother, Maternal Grandfather(V17.2, Z81.8) Status:Active Alcohol abuse: Father(305.00 , F10.10) Status:Active Unknown Family Member Name Dates Details Family history of coronary a rtery disease: Father(V17.3, Z82.49) Status:Active Family history of chronic ob structive pulmonary disease: Mother(V17.6, Z82.5) Status:Active Family history of senile dem entia: Mother, Maternal Grandmother, Maternal Grandfather(V17.2, Z81.8) Status:Active Alcohol abuse: Father(305.00 , F10.10) Status:Active Unknown Family Member Name Dates Details Family history of coronary a rtery disease: Father(V17.3, Z82.49) Status:Active Family history of chronic ob structive pulmonary disease: Mother(V17.6, Z82.5) Status:Active Family history of senile dem entia: Mother, Maternal Grandmother, Maternal Grandfather(V17.2, Z81.8) Status:Active Alcohol abuse: Father(305.00 , F10.10) Status:Active Unknown Family Member Name Dates Details Family history of coronary a rtery disease: Father(V17.3, Z82.49) Status:Active Family history of chronic ob structive pulmonary disease: Mother(V17.6, Z82.5) Status:Active Alcohol abuse: Father(305.00 , F10.10) Status:Active Family history of senile dem entia: Mother, Maternal Grandmother, Maternal Grandfather(V17.2, Z81.8) Status:Active Advance Directives No Advanced Directives Records FoundDocuments on File Type Date Recorded Patient Engineer [employer] ACP-Advance Directive ACP-Power of Chute Feeder Documents on File Type Date Recorded Patient Engineer Soils Expl anation ACP-Advance Directive ACP-Power of Chute Feeder Documents on File Type Date Recorded Patient Engineer Soils Expl anation Living Will 05/15/2020 Documents on File Type Date Recorded Patient Engineer Soils Expl anation Living Will 05/15/2020 Chief Complaint * working on headaches with ajovy * has had some worsening headaches * switching to aimovig * nervous * depressed * conflicts with everyone * affecting family life * almost homeless * had 2 hallucinations at home * worries about everything * constant worrying * doing better * having ct scan of lower back * from dr lara * and doing much better * doing better * having ct scan of lower back * from dr lara * and doing much better * increased sertraline hasn t helped with ocd features * helping with anxiety * was on steroids but was too soon * flu 2020 * covid not sure where he got it * shinglex vax recommend * psa 10/2020 * colonoscopy 2020 * had covid 07/11/21 * tylenol and mucinex * had fevers for a while * cough and now resolved * watching temp * last 2 weeks * repeating has been worse * counting has gotten really * had covid 07/11/21 * tylenol and mucinex * had fevers for a while * cough and now resolved * watching temp * last 2 weeks * repeating has been worse * counting has gotten really * A telephone visit (audio only) between the patient (at the originating site) and the provider (at the distant site) was utilized to provide this telehealth service. * Verbal consent was requested and obtained from LAMONT CEJA on this date, 10/15/2021 04:00 PM, for a telehealth visit. * I can't shut my mind off. * A telephone visit (audio only) between the patient (at the originating site) and the provider (at the distant site) was utilized to provide this telehealth service. * Verbal consent was requested and obtained from LAMONT CEJA on this date, 11/09/2021 04:00 PM, for a telehealth visit. * I keep counting and I am too sleepy. * in the last 2 months * foot pain, feels like shrink wrapped and needles * only relief if from holding foot * when stands up and gets knee pain in knee * stabbing pain both knees through back * hand pain when bends * and wants to snap * back has felt worse * seeing psych on october 15 * in the last 2 months * foot pain, feels like shrink wrapped and needles * only relief if from holding foot * when stands up and gets knee pain in knee * stabbing pain both knees through back * hand pain when bends * and wants to snap * back has felt worse * seeing psych on october 15 * flu 21 * covid * pneumovax * prevnar * shingrix * psa due * colonoscopy 2020 * bmi 25 * depression screen 2021 + * adv dir * eye exam no * fall risk 2021 * saw dr lara * taking nortripylline at bed * sleeping and head improving * A telephone visit (audio only) between the patient (at the originating site) and the provider (at the distant site) was utilized to provide this telehealth service. * Verbal consent was requested and obtained from LAMONT CEJA on this date, 03/28/2022 04:30 PM, for a telehealth visit. * I am okay. * AccompaniedBy_UH: * PsychChiefComplaintFreeTextNoteForm_UH: * No show for 4 pm first appt. Reason for Referral Status Reason Specialty Diagnoses / Procedures Referre d By Contact Referred To Contact Closed Radiology Diagnoses Acute intractable tension-type headache Procedures [place] [address] [place] [address] [address] [place] [address] Status Reason Specialty Diagnoses / Procedures Referre d By Contact Referred To Contact Closed Radiology Diagnoses Cervical stenosis of spinal canal Procedures CT LUMBAR SPINE WO CONTRAST Jin Lara MD [address] [facility] [address] [place] [address] Additional Source Comments (unrecognized sect ion and content) No Status Records FoundNo Status Records FoundNo Status Records FoundNo Status Records FoundNo Status Records FoundNo Status Records FoundNo Status Records FoundNo Status Records FoundNo Status Records FoundNo Status Records FoundNo Status Records FoundNo Status Records FoundNo Status Records Found INFORMATION SOURCE (unrecogn ized section and content) DATE CREATED AUTHOR AUTHOR'S ORGANIZ ATION 02/28/2018 [facility] DATE CREATED AUTHOR AUTHOR'S ORGANIZ ATION 10/08/2018 [facility] DATE CREATED AUTHOR AUTHOR'S ORGANIZ ATION 04/05/[address] [facility] DATE CREATED AUTHOR AUTHOR'S ORGANIZ ATION 04/15/2021 [facility] DATE CREATED AUTHOR AUTHOR'S ORGANIZ ATION 09/24/2022 [employer] DATE CREATED AUTHOR AUTHOR'S ORGANIZ ATION 01/21/2023 [facility] DATE CREATED AUTHOR AUTHOR'S ORGANIZ ATION 03/30/2023 [facility] DATE CREATED AUTHOR AUTHOR'S ORGANIZ ATION 05/23/2023 [facility] DATE CREATED AUTHOR AUTHOR'S ORGANIZ ATION 06/14/2023 [facility] DATE CREATED AUTHOR AUTHOR'S ORGANIZ ATION 07/21/2023 [facility] DATE CREATED AUTHOR AUTHOR'S ORGANIZ ATION 07/22/2023 [facility] EP[facility] DATE CREATED AUTHOR AUTHOR'S ORGANIZ ATION 08/01/2023 [facility] Reason for Visit (unrecogniz ed section and content) Reason Comments Hypertension Migraine Reason Comments Follow-up Care Teams (unrecognized sec tion and content) Instructional Technology Teacher Relationship Specialty Start Date End Date Ema Salinas DO [address] [place] [address] PCP - General 09/22/18 Ema Salinas DO [address] [place] [address] PCP - [employer]age PCP 08/11/21 Instructional Technology Teacher Relationship Specialty Start Date End Date Ema Salinas DO [address] [place] [address] PCP - General 09/22/18 Ema Salinas DO [address] [place] [address] PCP - [employer]age PCP 08/11/21 FOR RECORDS PERTAINING TO PATIENTS WHO ARE OR HAVE BEEN ENROLLED IN A CHEMICAL DEPENDENCY/SUBSTANCEABUSE PROGRAM, SOME INFORMATION MAY BE OMITTED. This clinical summary was aggregated from multiple sources. Caution should be exercised in using it in the provision of clinical care. This summary normalizes information from multiple sources, and as a consequence, information in this document may materially change the coding, format and clinical context of patient data. In addition, data may be omitted in some cases. CLINICAL DECISIONS SHOULD BE BASED ON THE PRIMARY CLINICAL RECORDS. [facility]. provides no warranty or guarantee of the accuracy or completeness of information in this document.
== END 2023-09-19 22:18 | disposition home or self-care (01) ==
PROVIDERS: Emergency Provider Emergency Medicine; Visit Provider Emergency Medicine
DX: S46.911A Strain of unspecified muscle, fascia and tendon at shoulder and upper arm level, right arm, initial encounter (principal); Z95.0 Presence of cardiac pacemaker
CPT/HCPCS: 73000; 99282